=== PATIENT | male | born 1980 | race Caucasian/White ===

== ENCOUNTER 2021-11-11 04:22 | Day surgery (SDC) | payer BC, OTHER ==
[2021-11-11 10:35] VITALS: BMI 29.2
[2021-11-11] MEDS ORDERED: MIDAZOLAM HCL 2 MG/2 ML SINGLE DOSE VIAL ONE ×2 (13:24→13:29)
[2021-11-11] MEDS ORDERED: PROPOFOL 20 ML ONE (13:24)
[2021-11-11] MEDS ORDERED: SUCCINYLCHOLINE CHLORIDE 200 MG/10 ML SYRINGE ONE (13:36)
[2021-11-11 14:24] VITALS: TEMP 97.2
[2021-11-11 14:54] VITALS: BP 111/69; PULSE 84
== END 2021-11-11 15:16 | disposition home or self-care (01) ==
LOC: JASU-SURG 04:22
PROVIDERS: ATTEND Urology
PROC: 0TF4XZZ Fragmentation in Left Kidney Pelvis, External Approach (ICD-10-PCS; principal; 2021-11-11 10:30)
DX: N20.0 Calculus of kidney (principal)
CPT/HCPCS: C9803-CS; U0003; U0005

== ENCOUNTER 2024-05-09 07:32 | Day surgery (SDC) | payer BC, OTHER ==
[2024-05-06 15:27] VITALS: BMI 30.3
[2024-05-09 16:42] VITALS: RESP 16
[2024-05-09 17:15] VITALS: BP 129/80; PULSE 86; TEMP 97.4
== END 2024-05-09 17:00 | disposition home or self-care (01) ==
LOC: JASU-SURG 07:32
PROVIDERS: ATTEND Urology
PROC: 0TF4XZZ Fragmentation in Left Kidney Pelvis, External Approach (ICD-10-PCS; principal; 2024-05-09 15:30)
DX: N20.0 Calculus of kidney (principal)